=== PATIENT | female | born 1940 | race Caucasian/White ===

== ENCOUNTER 2018-12-16 16:05 | Inpatient (IN) | payer MEDICARE ==
[~2018-12-16] VITALS: Ht 170.2 cm; Wt 95.5 kg
[2018-12-16 16:34] LABS: PCO2 Arterial 42.4 mmHg (35-45); PO2 Arterial 212 mmHg (80-100)
[2018-12-16 16:35] LABS: pH Blood Arterial 7.09 (7.35-7.45)
[2018-12-16 17:04] LABS: Source, Urine Catheter
[2018-12-16 17:24] LABS: Appearance, Urine Clear (Clear); Bilirubin, Urine Neg (Neg); Blood, Urine Neg (Neg); Color, Urine Yellow (P-Yellow); Glucose Qualitative, Urine Neg (Neg); Ketones, Urine Neg (Neg); Leukocyte Esterase, Urine Neg (Neg); Nitrite, Urine Neg (Neg); Protein, Urine Neg (Neg); Specific Gravity, Urine 1.015 (1.003-1.022); Urobilinogen, Urine NORM (Normal)
[2018-12-16 17:32] LABS: BASOPHILS ABSOLUTE AUTO 0.09 K/mm3 (0.00-0.23); BASOPHILS PERCENT AUTO 0 % (0-2); EOSINOPHILS ABSOLUTE AUTO 0.03 K/mm3 (0.00-0.68); EOSINOPHILS PERCENT AUTO 0 % (0-6); Hematocrit 37.8 % (33.0-51.0); Hemoglobin 11.1 g/dL (11.5-16.0); IMMATURE GRAN ABSOLUTE AUTO 0.68 K/mm3 (0.00-0.10); IMMATURE GRAN PERCENT AUTO 3 % (0-1); LYMPHOCYTES PERCENT AUTO 10 % (21-46); MONOCYTES ABSOLUTE AUTO 0.48 K/mm3 (0.16-1.47); MONOCYTES PERCENT AUTO 2 % (4-13); Mean Corpuscular HGB 28.8 pg (26.0-34.0); Mean Corpuscular HGB Conc 29.4 g/dL (31.5-36.5); Mean Corpuscular Volume 98 fL (80-100); Mean Platelet Volume 9.6 fL (9.1-12.4); NEUTROPHILS ABSOLUTE AUTO 23.58 K/mm3 (1.96-9.15); NEUTROPHILS PERCENT AUTO 86 % (41-73); Platelet Count 369 K/mm3 (150-400); RDW Coefficient Variation 14.6 % (11.7-14.2); Red Blood Cell Count 3.85 M/mm3 (3.80-5.20); White Blood Cell Count 27.46 K/mm3 (4.00-11.30)
[2018-12-16 17:56] LABS: Troponin I 0.324 ng/mL (0.000-0.040)
[2018-12-16 18:05] LABS: Alanine Aminotransfer (ALT/SGP 321 U/L (12-78); Albumin, Blood 2.8 g/dL (3.4-5.0); Albumin/Globulin Ratio 0.5 (0.8-1.8); Alk Phos 196 U/L (50-136); Anion Gap 14 mmol/L (6-16); Aspartate Aminotrans (AST/SGOT 434 U/L (12-37); Bilirubin, Total 0.4 mg/dL (0.1-1.0); Blood Urea Nitrogen 39 mg/dL (8-24); Bun/Creatinine Ratio 14.5 (12.0-20.0); CO2, Blood 19 mmol/L (21-32); Calcium, Blood 8.8 mg/dL (8.5-10.1); Chloride, Blood 92 mmol/L (98-108); Creatinine, Blood 2.69 mg/dL (0.40-1.00); Globulin, Blood 5.5 g/dL (2.2-4.0); Glomerular Filtration Rate 18 (60-); Glucose, Blood 234 mg/dL (70-99); Potassium, Blood 6.9 mmol/L (3.5-5.5); Sodium, Blood 125 mmol/L (136-145); Total Protein, Blood 8.3 g/dL (6.4-8.2)
--- NOTE | 2018-12-16 20:00 | NUR ---
PATIENT ARRIVED TO ICU 10 VIA GURNEY WITH ETT IN PLACE AND RT AT BEDSIDE. PATIENT TRANSFERRED TO ICU BED WITH SLIDER SHEET AND PLACED ON ICU MONITORS. PATIENT NOT RESPONDING TO PAINFUL STIMULI. PUPILS UNEQUAL RIGHT 2, LEFT 5 BOTH UNRESPONSIVE. PATIENT HAVING OCCASIONAL JERKING MOVEMENT TO BODY. LEVOPHED REMAINS OFF AT THIS TIME. DOCTOR CURRIE AT BEDSIDE SEE NEW ORDERS AND PLAN TO PLACE COOLING LINE.
[2018-12-16 21:56] LABS: PCO2 Arterial 38.5 mmHg (35-45); PO2 Arterial 67.6 mmHg (80-100); pH Blood Arterial 7.38 (7.35-7.45)
--- NOTE | 2018-12-16 22:00 | NUR ---
COOLING LINE COOLING LINE PLACE TO LEFT GROIN AT 2039. COOLING STARTED AT 2139 AND PATIENT AT GOAL OF 96.8 AT 0.
--- NOTE | 2018-12-16 22:20 | NUR ---
PATIENT S/O, MALKA, IN TO VISIT, GIVEN UPDATE. CALL PLACED TO [place] PATIENTS GRANDDAUGHTER WHO MALKA VERBALIZED WAS AWARE OF HER MEDICAL HX BETTER THAN HE WAS. UNABLE TO GET MORE HEALTH HISTORY FROM HER. CALL ALSO PLACED TO MARICRUZ PATIENTS DAUGHTER AND SHE WAS ALSO GIVEN AN UPDATE ON PATIENTS CONDITION. MALKA VERBALIZED THAT THERE IS A SON NAMED GORDY BUT IS UNSURE OF HOW TO GET AHOLD OF HIM.
[2018-12-16 22:57] LABS: International Normalized Ratio 1.13; Prothrombin Time Results 11.8 Sec (9.7-11.5)
[2018-12-16 23:06] LABS: Albumin, Blood 2.5 g/dL (3.4-5.0); Anion Gap 13 mmol/L (6-16); Blood Urea Nitrogen 45 mg/dL (8-24); Bun/Creatinine Ratio 16.3 (12.0-20.0); CO2, Blood 24 mmol/L (21-32); Calcium, Blood 8.3 mg/dL (8.5-10.1); Chloride, Blood 93 mmol/L (98-108); Creatinine, Blood 2.76 mg/dL (0.40-1.00); Glomerular Filtration Rate 18 (60-); Glucose, Blood 243 mg/dL (70-99); Phosphorus, Blood 3.6 mg/dL (2.5-4.9); Sodium, Blood 130 mmol/L (136-145)
[2018-12-17] MEDS ORDERED: FEBU40TA PO (00:06)
[2018-12-17] MEDS ORDERED: PROM25 PO (00:07)
[2018-12-17] MEDS ORDERED: LOSA50 PO (00:07)
[2018-12-17] MEDS ORDERED: LEVSOD125 PO (00:08)
[2018-12-17] MEDS ORDERED: Nitrostat0.4 MG SL (00:28)
[2018-12-17] MEDS ORDERED: DIGOX125 MCG PO (00:29)
[2018-12-17] MEDS ORDERED: CARV3.125 PO (00:29)
[2018-12-17] MEDS ORDERED: ASPI325 PO (00:31)
[2018-12-17] MEDS ORDERED: Pedi-Dri 100,0060 GM TOP (00:32)
[2018-12-17] MEDS ORDERED: CLOP75 PO (00:33)
[2018-12-17] MEDS ORDERED: CYCL10 PO (00:34)
[2018-12-17] MEDS ORDERED: ATOR40TA PO (00:35)
[2018-12-17] MEDS ORDERED: Isosorbide Mono60 MG PO (00:38)
[2018-12-17] MEDS ORDERED: POTCHL20ER PO (00:40)
[2018-12-17] MEDS ORDERED: LORA.5 PO (00:41)
[2018-12-17] MEDS ORDERED: TYLENOL325 MG PO (00:42)
--- NOTE | 2018-12-17 01:35 | NUR ---
IO REMOVED IO REMOVED WITHOUT DIFFICULTIES FROM LEFT LEG APPEARS INTACT
[2018-12-17 03:51] LABS: BASOPHILS ABSOLUTE AUTO 0.03 K/mm3 (0.00-0.23); BASOPHILS PERCENT AUTO 0 % (0-2); EOSINOPHILS PERCENT AUTO 0 % (0-6); Hematocrit 32.1 % (33.0-51.0); IMMATURE GRAN ABSOLUTE AUTO 0.12 K/mm3 (0.00-0.10); IMMATURE GRAN PERCENT AUTO 1 % (0-1); LYMPHOCYTES ABSOLUTE AUTO 0.99 K/mm3 (0.84-5.20); LYMPHOCYTES PERCENT AUTO 5 % (21-46); MONOCYTES ABSOLUTE AUTO 1.23 K/mm3 (0.16-1.47); MONOCYTES PERCENT AUTO 6 % (4-13); Mean Corpuscular HGB 28.8 pg (26.0-34.0); Mean Corpuscular HGB Conc 31.2 g/dL (31.5-36.5); Mean Corpuscular Volume 93 fL (80-100); Mean Platelet Volume 9.3 fL (9.1-12.4); NEUTROPHILS ABSOLUTE AUTO 18.38 K/mm3 (1.96-9.15); NEUTROPHILS PERCENT AUTO 89 % (41-73); Platelet Count 294 K/mm3 (150-400); RDW Coefficient Variation 14.5 % (11.7-14.2); RDW Standard Deviation 48.4 fL (35.1-46.3); Red Blood Cell Count 3.47 M/mm3 (3.80-5.20); White Blood Cell Count 20.75 K/mm3 (4.00-11.30)
[2018-12-17 04:13] LABS: Albumin, Blood 2.5 g/dL (3.4-5.0); Anion Gap 11 mmol/L (6-16); Blood Urea Nitrogen 48 mg/dL (8-24); Bun/Creatinine Ratio 17.3 (12.0-20.0); CO2, Blood 29 mmol/L (21-32); Calcium, Blood 7.8 mg/dL (8.5-10.1); Chloride, Blood 94 mmol/L (98-108); Creatinine, Blood 2.77 mg/dL (0.40-1.00); Glomerular Filtration Rate 18 (60-); Glucose, Blood 185 mg/dL (70-99); Phosphorus, Blood 3.7 mg/dL (2.5-4.9); Sodium, Blood 134 mmol/L (136-145)
[2018-12-17 04:23] LABS: Alanine Aminotransfer (ALT/SGP 226 U/L (12-78); Albumin, Blood 2.4 g/dL (3.4-5.0); Albumin/Globulin Ratio 0.6 (0.8-1.8); Alk Phos 112 U/L (50-136); Aspartate Aminotrans (AST/SGOT 362 U/L (12-37); Bilirubin, Direct <0.1 mg/dL (0.0-0.3); Bilirubin, Indirect Unable to Calculate mg/dL (0.1-0.7); Bilirubin, Total 0.3 mg/dL (0.1-1.0); Globulin, Blood 4.3 g/dL (2.2-4.0); Total Protein, Blood 6.7 g/dL (6.4-8.2)
--- NOTE | 2018-12-17 05:53 | NUR ---
SUMMARY PATIENT REMAINS UNRESPONSIVE TO STIMULI. AT TIMES WILL HAVE JERKING MOVEMENT TO ENTIRE BODY. PATIENT KEEPING EYES CLOSED WHEN OPENED PATIENT IS GAZING UPWARD RIGHT PUPIL REMAINS SMALLER THAN LEFT, DURING JERKING MOVEMENTS RIGHT PUPIL CHANGES IN SIZE. WHILE DOING ORAL CARE PATIENT CLOSES MOUTH AND APPEARS TO HAVE SUCKING MOTION. OCCASIONALLY HAVING COUGH WITH DEEP SUCTION, SUCTIONING BLOODY SPUTUM. LEVOPHED INFUSING AT 3MCG. PROPOFOL AT 10MCG. ATIVAN PRN ORDERED AND WITH LITTLE EFFECT. RESTRAINTS CONTINUE TO NOT BE NEEDED. PATIENTS S/O STATED THAT SHE FELL 2 WEEKS AGO AND HAD JUSTIN TO THE BACK OF HER HEAD WHICH WERE REMOVED LAST MONDAY, SMALL SCAR SEEN WITH NO REDNESS OR SWELLING. LATIC ACID AND TROP I CALLED TO DOCTOR KUSH THIS MORNING OBTAINING NEW ORDERS. COOLING LINE IN PLACE TO LEFT GROIN WITH GOAL OF TEMP 96.8.
--- NOTE | 2018-12-17 08:30 | NUR ---
ASSUMED CARE: REPORT RECEIVED FROM ENZO Carter RN. ASSUMED CARE OF THIS PT AT APPROX 0700. THE PT IS UNRESPONSIVE TO PAINFUL STIMULI & CONTINUES TO SEIZE INTERMITTENTLY, WORSE W/ STIMULUS. DURING EPISODES OF SEIZING, THE PT DESATS TO LOW 80s & HAS RUNS OF BIGEMINAL PVCs NOTED ON MONITOR. VENT SETTINGS: AC 14, TV 450, PEEP 5 & FiO2 40%. OGT REMAINS TO LIS, MOD AMNTS DARK BROWN/GREEN OUTPUT. COLMENARES PATENT/DRAINING. COOLING CATH IN PLACE TO L FEM ARTERY, PT AT GOAL TEMP OF 96.8 DEGREES FARENHEIGHT. WILL CONTINUE TO MONITOR & UPDATE NEEDED.
[2018-12-17 09:44] LABS: Albumin, Blood 2.3 g/dL (3.4-5.0); Anion Gap 9 mmol/L (6-16); Blood Urea Nitrogen 43 mg/dL (8-24); Bun/Creatinine Ratio 17.1 (12.0-20.0); CO2, Blood 31 mmol/L (21-32); Calcium, Blood 7.2 mg/dL (8.5-10.1); Chloride, Blood 94 mmol/L (98-108); Creatinine, Blood 2.51 mg/dL (0.40-1.00); Glomerular Filtration Rate 20 (60-); Glucose, Blood 148 mg/dL (70-99); Potassium, Blood 3.4 mmol/L (3.5-5.5); Sodium, Blood 134 mmol/L (136-145)
--- NOTE | 2018-12-17 10:36 | NUR ---
CALLED AND LEFT MESSAGE WITH PALLATIVE CARE IN REGARDS TO THIS PT AND TO GET THEM IN TOUCH WITH RODNEY (PT'S GRANDDAUGHTER) PER HER REQUEST.
--- NOTE | 2018-12-17 11:42 | NUR ---
DR EWING IN TO ASSESS PT. AP DAVE AND THIS RN UPDATED DR EWING ON THE PT'S STATUS. DR EWING TO ADD VALPROIC ACID TO MEDICATION REGIMEN AND INCREASE ATIVAN FREQUENCY FOR PERSISTENT SEIZURES, DESPITE KEPPRA IVPB. WILL DO A F/U CT SCAN OF THE HEAD TOMORROW. CONTINUE COOLING MEASURES PER PROTOCOL.
--- NOTE | 2018-12-17 14:09 | NUR ---
No family present at time of visit. [place] is non-responsive. I will remain available to pt and family.
[2018-12-17 16:33] LABS: Albumin, Blood 2.3 g/dL (3.4-5.0); Anion Gap 12 mmol/L (6-16); Blood Urea Nitrogen 38 mg/dL (8-24); Bun/Creatinine Ratio 16.2 (12.0-20.0); CO2, Blood 32 mmol/L (21-32); Calcium, Blood 7.1 mg/dL (8.5-10.1); Chloride, Blood 93 mmol/L (98-108); Creatinine, Blood 2.34 mg/dL (0.40-1.00); Glomerular Filtration Rate 21 (60-); Glucose, Blood 98 mg/dL (70-99); Phosphorus, Blood 3.1 mg/dL (2.5-4.9); Potassium, Blood 3.7 mmol/L (3.5-5.5); Sodium, Blood 137 mmol/L (136-145)
--- NOTE | 2018-12-17 18:20 | NUR ---
SHIFT SUMMARY: NO ACUTE CHANGES SINCE INITIAL ASSESSMENT & PRIOR UPDATES. THE PT REMAINS UNRESPONSIVE, ON MINIMAL SEDATION & PRN ATIVAN FOR CONTINUED SEIZURE ACTIVITY. EYES REMAIN FIXED, L PUPIL IS DILATED & NONREACTIVE AT 7MM, R PUPIL IS REACTIVE & SLUGGISH AT 5MM. EEG COMPLETED THIS AFTERNOON. DR EWING AWARE THAT THIS STUDY WILL NOT BE READ UNTIL NEUROLOGIST ON TOMORROW. VENT SETTINGS UNCHANGED: AC 14, TV 450, PEEP 5 & FiO2 40%. BP INCREASINGLY LABILE THIS EVENING, LEVOPHED TITRATED UP PER FLOWSHEET. NSR ON MONITOR, INCREASED PVCs W/ HYPOXIA. OGT TO LIS W/ BROWN/GREEN OUTPUT, 100 ML OUT THIS SHIFT. COLMENARES DRAINING PALE YELLOW URINE. THERAPEUTIC COOLING CONTINUES, PT AT GOAL OF 96.8 DEGREES FARENHEIGHT. PLAN IS FOR FAMILY TO BE CONVERSING ABOUT PT's CONDITION & MAKING A DECISION REGARDING CONTINUED CARE & LIFE SUPPORT MONET. WILL CONTINUE TO MONITOR & REPORT OFF TO ONCOMING RN.
--- NOTE | 2018-12-17 21:00 | NUR ---
PATIENTS DAUGHTER MARICRUZ IN TO SEE PATIENT ALONG WITH FRIEND DEEPALI. DAUGHTER GIVEN UPDATE AND DOCTOR GILDARDO ALSO IN TO SEE PATIENT. PATIENT CONTINUES TO HAVE SHIVERING AND HOLDING SHOULDERS TIGHT AND OCCASIONAL FULL BODY JERKING. PUPILS RIGHT SMALLER THEN LEFT AND BOTH ARE NOW SLUGGISH BUT REACTIVE TO LIGHT. DURING ORAL CARE PATIENT CLOSES HER MOUTH WITH SUCKING MOTION AND JENSEN SEEN ON FACE. NO CHANGE OR REACTION TO PAINFUL STIMULI. PROPOFOL INCREASED TO 20 MCG AND ATIVAN IV GIVEN TO HELP WITH SEIZURES AND PATIENT STACKING BREATHS. LEVOPHED CONTINUES FOR HYPOTENSION AT 9 MCG. PATIENT HAVING INCREASED PVC'S WITH SEIZURES. COOLING CONTINUES AT 96.8 GOAL WITH COOLING LINE. PLAN TO REWARM AT 2200. PATIENT REMAINS INTUBATED WITH VENT SET AT AC14 TV450 PEEP5 FIO2 40% COUGH SEEN WITH SUCTIONING.
--- NOTE | 2018-12-17 22:11 | NUR ---
REWARMING STARTED PATIENTS DAUGHTER MARICRUZ IN ROOM. PUPILS ARE NOW EQUIL AND REACTIVE TO LIGHT PATIENT CONTINUES TO GAZE UPWARD. COUGH SEEN WITH REPOSITIONING NO RESPONSE TO PAIN.
--- NOTE | 2018-12-18 03:59 | NUR ---
TO CT PATIENT TO CT FOR SCHEDULED EXAM. TRANSPORT WITH RT ON TRANSPORT VENT. PATIENT NIKKO WELL. COOLING MACHINE REPLACED AFTER RETURNING TO ROOM.
[2018-12-18 04:07] LABS: BASOPHILS ABSOLUTE AUTO 0.03 K/mm3 (0.00-0.23); BASOPHILS PERCENT AUTO 0 % (0-2); EOSINOPHILS ABSOLUTE AUTO 0.08 K/mm3 (0.00-0.68); EOSINOPHILS PERCENT AUTO 1 % (0-6); Hematocrit 29.2 % (33.0-51.0); IMMATURE GRAN ABSOLUTE AUTO 0.04 K/mm3 (0.00-0.10); IMMATURE GRAN PERCENT AUTO 0 % (0-1); LYMPHOCYTES ABSOLUTE AUTO 1.18 K/mm3 (0.84-5.20); LYMPHOCYTES PERCENT AUTO 9 % (21-46); MONOCYTES PERCENT AUTO 10 % (4-13); Mean Corpuscular HGB 28.5 pg (26.0-34.0); Mean Corpuscular HGB Conc 30.8 g/dL (31.5-36.5); Mean Corpuscular Volume 92 fL (80-100); Mean Platelet Volume 9.6 fL (9.1-12.4); NEUTROPHILS ABSOLUTE AUTO 11.08 K/mm3 (1.96-9.15); NEUTROPHILS PERCENT AUTO 81 % (41-73); Platelet Count 259 K/mm3 (150-400); RDW Coefficient Variation 14.8 % (11.7-14.2); Red Blood Cell Count 3.16 M/mm3 (3.80-5.20); White Blood Cell Count 13.71 K/mm3 (4.00-11.30)
--- NOTE | 2018-12-18 04:13 | NUR ---
~[address] with RN x2. No adverse events during transport per this RT.
[2018-12-18 04:45] LABS: Bun/Creatinine Ratio 15.5 (12.0-20.0); Potassium, Blood 3.4 mmol/L (3.5-5.5)
--- NOTE | 2018-12-18 05:51 | NUR ---
PROPOFOL OFF FOR WEAN AT 0520 PATIENT OPENING EYES SLIGHTLY BLINKING WHEN EYELASHES TOUCHED. EYES LOOKING FORWARD PUPILS EQUAL AT 5. NOT FOLLOWING DIRECTIONS. NO MOVEMENT SEEN IN ARMS. PLAN TO KEEP PROPOFOL OFF IF ABLE.
[2018-12-18 06:10] LABS: PCO2 Arterial 52.7 mmHg (35-45); PO2 Arterial 81.2 mmHg (80-100)
--- NOTE | 2018-12-18 06:37 | NUR ---
SUMMARY PATIENT REMAINS INTUBATED WITH VENT SET AT AC 14, TV 450, PEEP 5, FIO2 40% PROPOFOL REMAINS OFF AT THIS TIME, MEDICATED WITH ATIVAN DUE TO SHOULDER TWITCHING AND APPEARS TO BE A SHIVER. COOLING REMAINS IN PLACE TO KEEP PATIENT NORMOTHERMIC AT 98.6. LEVOPHED CONTINUES AT 5 MCG DUE TO CONTINUED HYPOTENSION. PATIENT OPENS EYES SLIGHTLY, BLINK REFLEX WHEN EYELASHES ARE TOUCHED. CONTINUES TO CLOSE MOUTH AROUND ETT DURING ORAL CARE. COUGH WITH ETT SUCTIONING. CONTINUES WITH NO MOVEMENT IN ARMS OR LEGS DESPITE PAINFUL STIMULI. CONTINUES TO NOT FOLLOW COMMANDS. PATIENTS DAUGHTER AT BEDSIDE ENTIRE NIGHT. CALL PLACED TO OMAR PT'S S/O AND GIVEN UPDATE, HE IS PLANNING TO COME IN LATE MORNING TO TALK TO MARICRUZ REGARDING PLANED CARE.
--- NOTE | 2018-12-18 09:00 | NUR ---
CARE ASSUMED CARE AND REPORT ASSUMED FROM ENZO GARCIA RN. PT INTUBATED WITH NO SEDATION. VENT AC 14, 450, PEEP 5, FIO2 40%. LUNG SOUNDS COARSE T/O. SEDATION OFF SINCE 0500. PUPILS REACTIVE TO LIGHT. EYES HAVE UPWARD GAZE BUT NO TRACKING. PT UNRESPONSIVE TO ANY PAINFUL OR VERBAL STIMULI. HAS OCCASSIONAL SHORT, TREMULOUS MOVEMENT. BUE RESTRAINTS APPLIED IN CASE PT AWAKENS. DAUGHTER MARICRUZ BEDSIDE AND UPDATED ON STATUS, FURTHER TREATMENT. COOLING MACHINE TURNED OFF PT'S TEMP HAS BEEN REWARMED SINCE 2200 ON THE PRIOR NIGHT. WILL MONITOR TEMPERATURE CLOSELY. HOB ELEVATED. PT HAS NO GAG RESPONSE WHEN SUCTIONED ORALLY AND THROUGH ETT. NO BLINK WHEN EYES STIMULATED. LEVOPHED GTT INFUSING AT 5 MCG/KG. BICARB INFUSING AT 150 ML/HR PER ORDER. WILL CONTINUE TO MONITOR.
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
--- NOTE | 2018-12-18 12:25 | NUR ---
REASSESSMENT PT REMAINS INTUBATED WITHOUT SEDATION. REMAINS COMPLETELY UNRESPONSIVE WITH NO GAG RESPONSE, NO RESPONSE TO PAINFUL OR VERBAL STIMULI, AND NO MOVEMENT FROM EXTREMITIES. DAUGHTER MARICRUZ, EX MALKA, AND FRIEND UPDATED ON STATUS. SOCIAL SERVICE CONSULT REQUESTED. MD EWING SPOKE WITH MARTHA ALCANTARA AT BEDSIDE REGARDING CURRENT STATUS AND FURTHER TREATMENT PLAN. WILL CONTINUE TO MONITOR.
--- NOTE | 2018-12-18 16:37 | NUR ---
REASSESSMENT PT REMAINS UNRESPONSIVE AND INTUBATED. FAMILY HAS SPOKEN WITH OFFICE HELPER AND PALLIATIVE CARE THIS AFTERNOON. PT NOW DNR.
--- NOTE | 2018-12-18 18:42 | NUR ---
Lengthy visits with pt's dtr, Amanda, throughout the day. She is very tearful and told me stories about her mother's strength and devotion. Amanda explained there is some "mental issues" with other family, and she feels rather alone in making these decisions. She expressed understanding that her mother is nearing end of life. "She never wanted any of this! I wish she could have just gone quickly and peacefully." Amanda has many questions about God, heaven, the afterlife. She appeared to gain strength from being heard and understood. I provided anticipatory bereavement baby counselor to good effect. Said prayer at bedside. Amanda has contacted family and informed them that pt will be allowed a natural tomorrow morning. We are awaiting pt's ex- to say his good-byes. I will remain available to this family.
--- NOTE | 2018-12-18 19:46 | NUR ---
BELONGINGS THAT ARRIVED TO HOSPITAL WITH PATIENT [HAIR CLIP, BRACELET, AND SLIPPERS] WITH DAUGHTER MARICRUZ
--- NOTE | 2018-12-18 19:57 | NUR ---
PATIENT INTUBATED WITH VENT SET AT AC 14, TV 450, PEEP 5 FIO2 40%. COUGHING WITH ORAL CARE AND SUCTIONING. COOLING LINE IN PLACE TO LEFT GROIN WITH MACHINE OFF. LEVOPHED CONTINUES FOR HYPOTENSION. PATIENT DAUGHTER MARICRUZ AND FRIEND DEEPALI AT BEDSIDE. PATIENT OPENS EYES SLIGHTLY WITH ORAL CARE AND ETT SUCTIONING. MARIAA. NO MOVEMENT SEEN IN ARMS OR LEGS.
--- NOTE | 2018-12-19 06:52 | NUR ---
SUMMARY PATIENT REMAINS INTUBATED ON THE VENT, NO CHANGE TO VENT SETTINGS T/O THE NIGHT. PATIENT OPENING EYES OCCASIONALLY WITH ORAL CARE AND SUCTIONING, NO MOVEMENT SEEN IN EXTREMITIES. LEVOPHED CONTINUES DUE TO HYPOTENSION. PATIENTS DAUGHTER MARICRUZ REMAINING AT BEDSIDE T/O THE NIGHT. PLAN WAS TO WAIT FOR PATIENTS S/O MALKA TO COME IN THIS AM AND THEN MAKE PATIENT COMFORT CARE. CALL RECEIVED AT APROX 0500 THIS AM FROM MALKA STATING THAT HE WILL NOT BE COMING IN THIS MORNING AND WAS ASKING ABOUT PATIENT BELONGINGS, MALKA INFORMED THAT THE HAIR CLIP, BRACELET AND SLIPPERS WERE GIVEN TO HER DAUGHTER MARICRUZ. MALKA AND MARICRUZ SPOKE ON THE PHONE, AND NOW PLAN IS TO WAIT FOR FAMILY FRIEND DEEPALI TO ARRIVE BEFORE REMOVING ETT.
--- NOTE | 2018-12-19 07:30 | NUR ---
RECEIVED REPORT AND ASSUMED CARE OF PATIENT. PT IS INTUBATED AND SEDATED AT THIS TIME. PROPFOL IS OFF, LEVOPHED IS RUNNING AT 5 MCG/MIN. PT APPEARS COMFORTABLE. DAUGHTER AT BEDSIDE WAITING FOR FAMILY FRIEND TO ARRIVE. POC IS FOR PATIENT COMFORT TO BE MAINTAINED AND WHEN FAMILY IS READY COMFORT CARE ORDER SET TO BE ENTERED FOR EXTUBATION TO OCCUR. WILL CONTINUE TO MONITOR AND ASSESS COMFORT OF PATIENT.
--- NOTE | 2018-12-19 08:30 | NUR ---
SOCIAL SERVICE GRANT MANCILLA TO SEE FAMILY RELATED TO POA AND GUARDIANSHIP PAPERWORK. WILL CONTINUE TO BE AVAILABLE FOR FAMILY NEEDED.
--- NOTE | 2018-12-19 10:30 | NUR ---
DR JAUREGUI IN TO SEE PATIENT. DOES NOT WANT HEPARIN GIVEN AT THIS TIME, SPOKE WITH FAMILY AND REITERATED POC TO EXTUBATE PATIENT AROUND 1230. NO OTHER CHANGES AT THIS TIME.
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
--- NOTE | 2018-12-19 17:08 | NUR ---
RT PALACIOS EXTUBATED PATIENT PER DR. LUJAN. GAVE MORPHINE INHALATION TREATMENT AND WILL CONTINUE TO MONITOR.
--- NOTE | 2018-12-19 17:43 | NUR ---
SHIFT SUMMARY: PT EXTUBATED AT 1443, NO SEDATION HAS BEEN USED DURING THIS SHIFT. PRESSORS RAN UNTIL 1443. PT COMFORT CARE STATUS AT THIS TIME. COLMENARES IN PLACE DRAINING TO GRAVITY. KEEPING PATIENT COMFORTABLE WITH FENTANYL, ATIVAN AND MORPHINE UPDRAFTS ARE AVAILABLE IF NEEDED FOR AIR HUNGER. DAUGHTER AND FRIENDS AT BEDSIDE MOST OF THE DAY. MARTHA ALCANTARA HAS MET WITH MULTIPLE STAFF MEMBERS DURING THE SHIFT IN REGARDS TO COORDINATION OF ARRANGEMENTS FOR HER MOTHER'S PASSING. PT CONTINUES TO APPEAR COMFORTABLE, WILL CONTINUE TO MONITOR AND PROVIDE COMFORT TO PATIENT AND SUPPORT TO FAMILY.
--- NOTE | 2018-12-19 18:03 | NUR ---
Several visits with pt's dtr, Amanda, throughout this shift. Provided family life counselor and prayer to good effect. Present at bedside throughout extubation. Amnada tearful, but appropriate. Pt is non-responsive, but appears peaceful. I will remain available.
--- NOTE | 2018-12-19 20:33 | NUR ---
[place] of Care: Patient on comfort measures only, DNR/DNI. Patient non-responsive, and appears comfortable. HR recently increased from low 100's to 115-120, therefore prn fentanyl given, good effect noted. Patient's daughter at bedside, tearful, but states to be happy with staff's care of patient, denies further needs at this time, comfort cart in room. New bed assignment ([id number]) received from charge nurse at this time. Will continue to monitor until report and transfer to floor.
--- NOTE | 2018-12-19 22:05 | NUR ---
Transfer: Patient transferred to [facility] via bed. Belongings sent with patient and patient's daughter. Report called to Minoo DE SOUZA. Transferred to medical floor bed without difficulty. Patient continues to show no signs of pain/discomfort.
--- NOTE | 2018-12-19 22:50 | NUR ---
PT TRANSFERRED FROM ICU TO MED FLOOR RM 2. REPORT TAKEN FROM ICU NURSE. PT IN ROOM. DAUGHTER AT BEDSIDE. PT APPEARS COMFORTABLE. RESTING. NON RESPONSIVE. DAUGHTER DENIES NEEDS. WILL CONTINUE TO MONITOR.
--- NOTE | 2018-12-20 01:53 | NUR ---
PT STILL APPEARS TO BE RESTING COMFORTABLY. SECRETIONS HAVE INCREASED. WILL GET ATROPINE DROPS OR SCOPOLAMINE PATCH ORDERED.
--- NOTE | 2018-12-20 04:43 | NUR ---
SHIFT SUMMARY PT TRANSERRED FROM ICU THIS SHIFT, DAUGHTER AT BEDSIDE T/O THE NIGHT. PT HAS REMAINED UNRESPONSIVE. AND HAS APPEARED COMFORTABLE FOR MOST OF THE SHIFT SINCE HER TRANSFER. PT OCCASIONALLY DOES HAVE SOME AIR HUNGER. SECREATIONS HAVE INCREASED. SUCTION CANESTER SET UP AT BEDSIDE TO USE PRN. COMFORT ASSESSED T/O THE SHIFT. WILL CONTINUE TO MONITOR AND REPORT TO ONCOMING RN.
--- NOTE | 2018-12-20 08:36 | NUR ---
HER DAUGHTER CALLED OUT TO US IN THE [place]. ENTERED ROOM AND FOUND JASE WITHOUT PULSE OR RESPIRATIONS AT 0820. SHE HAD A WET RATTLE EARLY AM DURING REPORT WITH REGULAR RESPIRATIONS. AFTER REPORT I APPLIED A SCOPALAMINE PATCH BEHIND HER RIGHT EAR. HER DAUGHTER WAS AT THE BEDSIDE. I HAVE NOTIFIED HER S.OLatisha NELSON, , AND THE NURSING MANAGER OF [employer]. THE FINAL DISCHARGE DOCUMENTATION WAS STARTED ON THE . I CONTINUED THE DOCUMENTATION. CHAPLAIN JAFFE IS WITH RADHA'S DAUGHTER. OMAR WILL GO TO [facility] LATER TODAY.
--- NOTE | 2018-12-20 08:53 | NUR ---
Spiritual care visit conducted. I arrived in patient's room moments after her demise at the request of the patient's daughter, Amanda. I listened empathically and learned of the reji, pain and family unit complications that surround the patient's . I normalized daughter's experience, provided grief support and emotional support. I also provided prayer for the patient and the family. Patient expressed gratitude and showed signs of elevated hope and peace.
[2018-12-20 09:55] LABS: U Amphetamine Screen Not Detected; U Barbituate Screen Not Detected; U Benzodiazapine Screen DETECTED; U Buprenorphine Screen Not Detected; U Cannabinoids Screen Not Detected; U Cocaine Screen Not Detected; U Methadone Screen Not Detected; U Methamphetamine Screen Not Detected; U Opiates Screen DETECTED; U Oxycodone Screen Not Detected; U Phencyclidine Screen Not Detected; U Propoxyphene Screen Not Detected
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
--- NOTE | 2018-12-20 11:50 | NUR ---
AT 0735 HOB UP 65 DEGREES. RESP REGULAR AT 16/MIN BUT WET AND RATTLING. SCOPALOMINE PATCH APPLIED. SHE IS UNRESPONSIVE. DAUGHTER DEENA AT THE BEDSIDE.
--- NOTE | 2018-12-20 11:53 | NUR ---
[facility]ORY HERNANDEZ PICKED HER UP ABOUT 11 AM.
== END 2018-12-20 08:20 | DRG 296 ==
LOC: EDBD 16:05 → ER 16:05 → ICUW 19:28 → MEDS 12-19 21:55 → ENPENDDIS 12-20 07:12 → EDPENDDIS 12-20 07:12 → MEDS 12-20 08:20
PROVIDERS: Family Medicine; Internal Medicine; Internal Medicine Critical Care Medicine; ADMIT Internal Medicine
PROC: 06HN33Z Insertion of Infusion Device into Left Femoral Vein, Percutaneous Approach (ICD-10-PCS; principal; 2018-12-16)
PROC: 3E033XZ Introduction of Vasopressor into Peripheral Vein, Percutaneous Approach (ICD-10-PCS; 2018-12-16)
PROC: 5A1945Z Respiratory Ventilation, 24-96 Consecutive Hours (ICD-10-PCS; 2018-12-16)
DX: I46.9 Cardiac arrest, cause unspecified (principal); R40.20 Unspecified coma; J96.01 Acute respiratory failure with hypoxia; R65.11 Systemic inflammatory response syndrome (SIRS) of non-infectious origin with acute organ dysfunction; N18.4 Chronic kidney disease, stage 4 (severe); N25.81 Secondary hyperparathyroidism of renal origin; I50.42 Chronic combined systolic (congestive) and diastolic (congestive) heart failure; I24.9 Acute ischemic heart disease, unspecified; N17.9 Acute kidney failure, unspecified; G93.1 Anoxic brain damage, not elsewhere classified; I13.0 Hypertensive heart and chronic kidney disease with heart failure and stage 1 through stage 4 chronic kidney disease, or unspecified chronic kidney disease; Z95.5 Presence of coronary angioplasty implant and graft; K21.9 Gastro-esophageal reflux disease without esophagitis; Z87.891 Personal history of nicotine dependence; E03.9 Hypothyroidism, unspecified; D50.9 Iron deficiency anemia, unspecified; I25.10 Atherosclerotic heart disease of native coronary artery without angina pectoris; M10.9 Gout, unspecified; Z79.82 Long term (current) use of aspirin; Z79.02 Long term (current) use of antithrombotics/antiplatelets; E87.5 Hyperkalemia; E66.9 Obesity, unspecified; Z68.34 Body mass index [BMI] 34.0-34.9, adult; G40.901 Epilepsy, unspecified, not intractable, with status epilepticus; Z66 Do not resuscitate; I08.0 Rheumatic disorders of both mitral and aortic valves; Z51.5 Encounter for palliative care; E11.22 Type 2 diabetes mellitus with diabetic chronic kidney disease; R68.0 Hypothermia, not associated with low environmental temperature; R57.0 Cardiogenic shock
CPT/HCPCS: 31720; 36556; 36600; 51702; 70450; 71045; 80048; 80053; 80069; 80076; 81003; 82248; 82803; 82947; 83605; 83880; 84484; 85025; 85610; 87070; 87205; 93005; 93010; 93306; 94002; 94003; 94640; 95819; 96365; 96366; 96367; 96368; 96375; 99291-25; 99292; C9113; J0456; J0610; J1644; J1815; J1940; J1953; J2060; J2270; J2543; J3010; J3480; J7030; J7040; J7050; J7060; J7070